=== PATIENT | female | born 1960 | race Caucasian/White ===

== ENCOUNTER → 2017-08-07 | Outpatient (CLI) | payer OTHER | LOC: CAT 07:56 | DX: J98.01 Acute bronchospasm (principal); R91.8 Other nonspecific abnormal finding of lung field ==

== ENCOUNTER → 2019-06-12 | Outpatient (CLI) | payer OTHER | LOC: CAT 08:45 | DX: R06.00 Dyspnea, unspecified (principal); R05 Cough ==

== ENCOUNTER → 2020-06-08 | Outpatient (CLI) | payer OTHER | LOC: CAT 08:27 | PROVIDERS: ATTEND Family Medicine | DX: Z13.6 Encounter for screening for cardiovascular disorders (principal); I25.10 Atherosclerotic heart disease of native coronary artery without angina pectoris; E78.00 Pure hypercholesterolemia, unspecified ==

== ENCOUNTER → 2020-07-01 | Outpatient (CLI) | payer OTHER | LOC: CAT 08:11 | PROVIDERS: ATTEND Internal Medicine | DX: J98.4 Other disorders of lung (principal); R91.1 Solitary pulmonary nodule ==

== ENCOUNTER → 2020-08-24 | Outpatient (CLI) | payer OTHER | LOC: CAT 08:25 | PROVIDERS: ATTEND Internal Medicine | DX: R91.8 Other nonspecific abnormal finding of lung field (principal); J98.4 Other disorders of lung ==

== ENCOUNTER → 2020-10-01 | Outpatient (CLI) | payer OTHER ==
[~2020-10-01] MED LIST: ADDERALL XR 2525 MG PO; BENADRYL25 MG PO; FISH OIL 1,001000 M3 PO; MELATONIN10 M3 PO; MULTI VITAMIN1 EACH PO; OMEPRAZOLE 20 M20 M1 PO; SUPER B MAXI C0.4 MG PO; VITAMIN C1000 MG PO; VITAMIN D375 MCG PO; XYZAL5 MG PO
== END ==
LOC: LAB 09-29 12:03
PROVIDERS: ATTEND Internal Medicine
DX: Z01.812 Encounter for preprocedural laboratory examination (principal); Z20.822 Contact with and (suspected) exposure to COVID-19

== ENCOUNTER 2020-10-05 06:09 | Outpatient (CLI) | payer OTHER ==
[~2020-10-05] VITALS: Ht 160 cm; Wt 70.3 kg
[2020-10-05 07:19] VITALS: BP 146/87
[2020-10-05 12:04] LABS: CLARITY TURBID; COLOR LIGHT PINK; TOTAL VOLUME 20 mL
[2020-10-05 12:19] LABS: BF NUCLEATED CELLS 2143 /mm3; BF RBC 2226 /mm3
[2020-10-05 13:09] LABS: BF MACROPHAGE 0 %; BF NEUTROPHILS 100 %
--- NOTE | 2020-10-09 16:06 | PATH ---
[facility] [place] [address] PATHOLOGY RPT PROCEDURE Name: JUAN DAVID QUIÑONES Room #: DEP [facility] M.Ora.#: [id number] Admission: 10/05/20 Date of : 58 Discharge: 10/05/20 Report #: [id number] Path Case #: [id number] [facility] Accession Number: [id number] . 01 Material submitted: . bronchus - MULTILOBE BIOPSY TISSUE . 01 Clinical history: . REASON FOR VISIT - PUL/BRONCHOSCOPY/HYPERSENSITIVITY PNEUMONITIS SPECIMEN SOURCE - RESP/BRONCH BRUSH COMMENT - MULTILOBAR TISSUE BIOPSY BRONCHOSCOPY . 02 Diagnosis: Bronchus, multilobar tissue, biopsy: - Scattered foci of acute and chronic inflammation along with macrophages within alveolated lung parenchyma, see comment. - Reactive changes. - Negative for vasculitis. - Negative for viral inclusions. - No definitive granulomata identified. - Negative for dysplasia or malignancy. (IUV:maira; 10/08/2020) MBR 10/08/2020 1428 Local . 02 Comment: Scattered rare foci of pneumonitis associated with "lipoid" cells are noted. Findings may be suggestive of lipoid pneumonia or aspiration pneumonia. Foreign body-type giant cells, or well-formed granulomata are not identified. Hyaline membranes are not identified. AFB and GMSF fungal special stains are ordered on block A3 and the results of this will be reported in an addendum to follow. Please correlate clinically. (IUV:bisque kiln drawer; 10/08/2020) . 02 Addendum: . Acid fast bacillus and Gomori methenamine silver stains performed on block A3 are negative for mycobacterial as well as fungal elements, respectively. (IUV:pit 10/09/2020) . Professional services performed by [facility] at [facility], [address] , [place] [address]. Technical services performed by [facility] at [address] [place] [address], [address], [place] [address]. LBQ/10/09/2020 Addendum Electronically Signed by Monica Wu MD, Pathologist . 02 Electronically signed: . [facility] [address] [place] [address] PATHOLOGY RPT PROCEDURE Name: NAHEDJUAN DAVID TRIPATHI Room #: DEP KELLEN Lassiter#: [id number] Admission: 10/05/20 Date of : 58 Discharge: 10/05/20 Report #: [id number] Path Case #: [id number] Monica Wu MD, Pathologist NPI- [id number] . 01 Gross description: . Received in formalin labeled "Nahed, Juan David, multilobe biopsy tissue" are multiple gibson-brown soft tissue fragments measuring in aggregate 2.1 x 0.6 x 0.3 cm. The specimen is submitted entirely in A1-A3. ([facility]; 10/07/2020) GZA/GZA 10/07/2020 0933 Local . 02 Pathologist provided ICD-10: J21.9, J42 . 02 CPT . 540562, 098572, 502683 Specimen Comment: Report sent to / Performed at: [address], [place] [id number] MD Surjit Sherman MD Phone: [phone] Performed at: [address] [id number] MD Monica Wu MD Phone: [phone]
--- NOTE | 2020-10-12 11:07 | PATH ---
[facility] [address] [place] [address] PATHOLOGY RPT PROCEDURE Name: JUAN DAVID QUIÑONES Room #: DEP KELLEN Gottlieb.Ora.#: [id number] Admission: 10/05/20 Date of : 58 Discharge: 10/05/20 Report #: [id number] Path Case #: [id number] Note [facility] Accession Number: [id number] TESTS RESULT FLAG UNITS REF RANGE LAB Clinician Provided Cytology Information No. of containers..01 Other (Miscellaneous) Source: BAL DIAGNOSIS: 02 BAL NEGATIVE FOR MALIGNANT EPITHELIAL CELLS. NORMAL BRONCHIAL CELLS ARE PRESENT. PULMONARY MACROPHAGES PRESENT, INDICATIVE OF LOWER RESPIRATORY TRACT SAMPLING. REACTIVE SQUAMOUS CELLS ARE PRESENT. ACUTE AND CHRONIC INFLAMMATION. Pathologist ICD10: 02 J18.9 Signed out by: 02 Monica Wu MD, Pathologist NPI- [id number] Performed by: Evin Barcenas, Chief Controller Station ([facility]) Gross description: 01 15ML, LGHT KEN CLDY, 1 TP /LCS 10/06/2020 1447 Local FLAG LEGEND: L-Low Normal,H-High Normal,LL-Alert Low,HH-Alert High <-Panic Low,>-Panic High,A-Abnormal,AA-Critical Abnormal Performed at: [address] [place] [address] Surjit Sherman MD, [address] [address] Monica Wu MD, Specimen Comment: Report sent to Performed at: [address], [place], [place] [id number] MD Surjit Sherman MD Phone: [phone]
--- NOTE | 2020-10-12 11:07 | PATH ---
[facility] [address] [place] [address] PATHOLOGY RPT PROCEDURE Name: JUAN DAVID QUIÑONES Room #: DEP KELLEN Gottlieb.Ora.#: [id number] Admission: 10/05/20 Date of : 58 Discharge: 10/05/20 Report #: [id number] Path Case #: [id number] Note [facility] Accession Number: [id number] TESTS RESULT FLAG UNITS REF RANGE LAB Clinician Provided Cytology Information No. of containers..01 Other (Miscellaneous) Source: BRUSHTIP RML DIAGNOSIS: BRUSHTIP RML NEGATIVE FOR MALIGNANT EPITHELIAL CELLS. REACTIVE BRONCHIAL CELLS ARE PRESENT. SCANT CELLULARITY. Pathologist ICD10: 02 J18.9 Signed out by: 02 Monica Wu MD, Pathologist NPI- [id number] Performed by: Milla Barcenas Facer Operator ([facility]) Gross description: 1 SHANNAN /CHANG 10/06/2020 1444 Local FLAG LEGEND: L-Low Normal,H-High Normal,LL-Alert Low,HH-Alert High <-Panic Low,>-Panic High,A-Abnormal,AA-Critical Abnormal Performed at: [address] [facility] [address] [place] [address] Surjit Sherman MD, [address] [address] Monica Wu MD, Specimen Comment: Report sent to Performed at: [address], [place], [place] [id number] MD Surjit Sherman MD Phone: [phone]
== END 2020-10-05 11:00 | disposition home or self-care (01) ==
LOC: PUL 06:09 → TBA 06:21 → PUL 10:38
PROVIDERS: ATTEND Pediatrics
DX: R05 Cough (principal); R06.00 Dyspnea, unspecified; J20.9 Acute bronchitis, unspecified; J42 Unspecified chronic bronchitis; J18.9 Pneumonia, unspecified organism; K21.9 Gastro-esophageal reflux disease without esophagitis; Z98.890 Other specified postprocedural states; Z79.899 Other long term (current) drug therapy; Z87.442 Personal history of urinary calculi
CPT/HCPCS: 50010; 62110; 62900; 70005

== ENCOUNTER → 2020-11-18 | Outpatient (CLI) | payer OTHER ==
--- NOTE | ~2020-11-18 | PFR/MVV ---
[facility] [place] [address] [address] PULMONARY FUNCTION MVV/REPORT Name: JUAN DAVID QUIÑONES Room #: REG [facility] Kailash.#: [id number] Admission: 11/18/20 Attend Phys: Von Hawley MD Discharge: Date of : 58 Report #: [id number] THIS REPORT FOR: //name// COPIES FOR: AGE: 60 SEX/RACE: F/C >> SPIROMETRY: (BTPS) Height: 64 in cm Weight: 155 lbs kg Exam Date: 11/18/20 PRE-RX POST-RX PRED BEST %PRED BEST %PRED %CHG FVC LITERS . 3.04 . 1.65 . 54 . 1.65 . 54 . 0 FEV1 LITERS . 2.24 . 1.43 . 64 . 1.54 . 69 . 8 FEV1/FVC % . 73 . 87 . 119 . 93 . 127 . 7 HFI67-33% L/Sec . 2.56 . 2.48 . 97 . 1.92 . 75 . -23 PEF L/SEC . 5.70 . 6.33 . 111 . 5.39 . 95 . -15 FEF50/FIF50 UNITLESS . <1.00 . 1.30 . . 1.56 . . 20 MVV L/Min . 91 . 66 . 73 f 1/Min . . 245 . >> LUNG VOLUMES: (BTPS) PRE-RX POST-RX PRED AVG %PRED AVG %PRED %CHG VC Liters . 3.04 . 1.84 . 60 . . . TLC Liters . 4.89 . 4.24 . 87 . . . RV Liters . 1.85 . 2.40 . 130 . . . RV/TLC % . 38 . 57 . [address] . . . [address]C [address] Liters . 2.71 . 2.77 . 102 . . . FRC N2 Liters . 2.71 . . . . . ERV Liters . 1.02 . 0.37 . 37 . . . IC Liters . 2.04 . 1.56 . 76 . . . >> DIFFUSION: DLCO ml/Min/mmHg . 20.6 . 11.9 . 58 . . . DL Vijay ml/Min/mmHg . 20.6 . 11.9 . 58 . . . DLCO/VA ml/Min/mmHg . 3.77 . 5.09 . 135 . . . VA Liters . . 2.34 . . . . [facility] [address] [place] [address] PULMONARY FUNCTION MVV/REPORT Name: JUAN DAVID QUIÑONES Room #: REG KELLEN Lassiter#: [id number] Admission: 11/18/20 Attend Phys: Von Hawley MD Discharge: Date of : 58 Report #: [id number] COMMENTS: COMMENTS: >> RESISTANCE: PRE-RX PRED AVG %PRED Raw Total cmH20/L/Sec . . 3.06 . Raw Insp cmH20/L/Sec . . 3.76 . Raw Exp cmH20/L/Sec . . 3.81 . Raw cmH20/L/Sec . 1.42 . 1.91 . 135 Gaw L/Sec/cmH20 . 0.649 . 0.523 . 81 sRaw cmH20 Sec . 3.83 . 5.98 . 156 sGaw l/cmH20 Sec . 0.261 . 0.167 . 64 Vtq Liters . . 3.13 . # = OUTSIDE 95% CONFIDENCE INTERVAL CALIBRATION: PRED: 3.00 ACTUAL: EXP 3.01 INSP 3.02 [id number] >> INTERPRETATION/IMPRESSION: PULMONARY FUNCTION STUDIES: SPIROMETRY: FEV1 is 1.43 liters (64%), FVC is 1.65 liters (54%), FEV1/FVC ratio is 87%. Postbronchodilator therapy with no significant response. LUNG VOLUMES: Total lung capacity is 4.24 liters (87%). RV is 2.4 liters (130%). Diffusing capacity is 58%. IMPRESSION: Pulmonary function studies are consistent with a mild restrictive airflow defect. There is no significant response to bronchodilator therapy. There is evidence of mild air trapping. Diffusing capacity is moderately decreased. By: Von Hawley MD /nt
== END ==
LOC: PUL 08:22
PROVIDERS: ATTEND Pediatrics
DX: J44.9 Chronic obstructive pulmonary disease, unspecified (principal); R06.00 Dyspnea, unspecified

== ENCOUNTER → 2021-02-18 | Outpatient (CLI) | payer OTHER | LOC: CAT 13:03 | PROVIDERS: ATTEND Internal Medicine | DX: M85.88 Other specified disorders of bone density and structure, other site (principal); J98.11 Atelectasis; J92.9 Pleural plaque without asbestos; R91.8 Other nonspecific abnormal finding of lung field; M06.9 Rheumatoid arthritis, unspecified; J98.4 Other disorders of lung; R93.89 Abnormal findings on diagnostic imaging of other specified body structures ==

== ENCOUNTER → 2021-08-09 | Outpatient (CLI) | payer OTHER | LOC: CAT 08:20 | PROVIDERS: ATTEND Internal Medicine | DX: R91.8 Other nonspecific abnormal finding of lung field (principal); J98.4 Other disorders of lung; M06.9 Rheumatoid arthritis, unspecified; J67.9 Hypersensitivity pneumonitis due to unspecified organic dust; J47.9 Bronchiectasis, uncomplicated; J98.11 Atelectasis ==